=== PATIENT | female | born 1950 | race Caucasian/White ===

== ENCOUNTER 2016-08-02 06:09 | Day surgery (SDC) | payer OTHER, BC ==
--- NOTE | 2016-08-02 07:08 | HP ---
Admitting History and Physical - Admission History of Present Illness: patient is a 66 y/o female with a past medical history of hypertension, hyperlipidemia, and depression. Patient presents for ect, this will be her first ect treatment. She was referred by her psychiatrist, Dr Russell for ect because her current medication regimen has been ineffective. She denies any hospitalizations for depression. He denies any suicide attempts, she does reports suicidal thoughts however, she does have a plan. Patient denies any visual or auditory hallucination. Patient does report compliance with prescribed medications. History Source: Patient Limitations to Obtaining History: No Limitations - Past Medical History Cardiovascular: Yes: HTN, Hyperlipdemia - Smoking History Smoking history: Never smoked Have you smoked in the past 12 months: No - Alcohol/Substance Use Hx Alcohol Use: Yes (OCCASIONAL SOCIAL) History of Substance Use: reports: None - Social History Usual Living Arrangement: Yes: With Spouse ADL: Independent Home Medications - Allergies Allergies/Adverse Reactions: Allergies Allergy/AdvReac Type Severity Reaction Status Date / Time No Known Drug Allergies Allergy Verified 07/29/16 10:43 - Home Medications Home Medications: Ambulatory Orders Amlodipine Besylate 5 mg PO HS 07/29/16 Aripiprazole [Abilify] 5 mg PO HS 07/29/16 Atorvastatin Ca [Lipitor] 40 mg PO HS 07/29/16 Lamotrigine 200 mg PO BID 07/29/16 Sertraline HCl [Zoloft] 200 mg PO HS 07/29/16 Family Disease History - Family Disease History Family History: Unremarkable Review of Systems - Review of Systems Constitutional: reports: No Symptoms Eyes: reports: No Symptoms HENT: reports: No Symptoms Neck: reports: No Symptoms Cardiovascular: reports: No Symptoms Respiratory: reports: No Symptoms Gastrointestinal: reports: No Symptoms Genitourinary: reports: No Symptoms Musculoskeletal: reports: No Symptoms Integumentary: reports: No Symptoms Neurological: reports: No Symptoms Endocrine: reports: No Symptoms Hematology/Lymphatic: reports: No Symptoms Psychiatric: reports: No Symptoms Physical Examination Vital Signs: Vital Signs Temperature 98.2 F 08/02/16 06:49 Pulse Rate 60 08/02/16 06:49 Respiratory Rate 18 08/02/16 06:49 Blood Pressure 130/84 08/02/16 06:49 O2 Sat by Pulse Oximetry (%) 97 08/02/16 06:49 Constitutional: Yes: Well Nourished, No Distress, Calm Eyes: Yes: WNL, Conjunctiva Clear, EOM Intact HENT: Yes: WNL, Atraumatic, Normocephalic Neck: Yes: WNL, Supple, Trachea Midline Cardiovascular: Yes: WNL, Regular Rate and Rhythm, S1, S2 Respiratory: Yes: WNL, Regular, CTA Bilaterally Gastrointestinal: Yes: WNL, Normal Bowel Sounds, Soft ...Rectal Exam: Yes: Deferred Renal/: Yes: WNL Musculoskeletal: Yes: WNL Extremities: Yes: WNL Edema: No Peripheral Pulses WNL: Yes Peripheral Pulses: Left Radial: 4+, Right Radial: 4+, Left Doralis Pedis: 3+, Right Dorsalis Pedis: 3+, Left Femoral: 3+, Right Femoral: 3+ Integumentary: Yes: WNL Neurological: Yes: WNL, Alert, Oriented ...Motor Strength: WNL Psychiatric: Yes: WNL, Alert, Oriented Labs: reviewed 07/18/16 Imaging - Results EKG: Report Reviewed, Image Reviewed (nsr non specific st abnormality), Other Assessment/Plan pt is a 66 y/o female that presents for ect. labs and ekg reviewed, pt is low risk for procedure informed consent, risks and benefits to be obtained by Dr Mace.
[2016-08-02] MEDS ORDERED: KETAMINE HCL 500 MG/10 ML VIAL ONE (08:03)
[2016-08-02] MEDS ORDERED: LACTATED RINGERS SOLUTION 1,000 ML IV SCH (09:30)
== END 2016-08-02 09:42 | disposition home or self-care (01) ==
LOC: FECT 06:09
PROVIDERS: ATTEND Psychiatry & Neurology Psychiatry
PROC: GZB4ZZZ Other Electroconvulsive Therapy (ICD-10-PCS; principal; 2016-08-02 08:00)
DX: F33.2 Major depressive disorder, recurrent severe without psychotic features (principal)
CPT/HCPCS: 90870; 94760

== ENCOUNTER 2016-08-04 05:40 | Day surgery (SDC) | payer OTHER, BC ==
[2016-08-04] MEDS ORDERED: KETAMINE HCL 500 MG/10 ML VIAL ONE (07:20)
== END 2016-08-04 09:03 | disposition home or self-care (01) ==
LOC: FECT 05:40
PROVIDERS: ATTEND Psychiatry & Neurology Psychiatry
PROC: GZB4ZZZ Other Electroconvulsive Therapy (ICD-10-PCS; principal; 2016-08-04 07:45)
DX: F33.2 Major depressive disorder, recurrent severe without psychotic features (principal)
CPT/HCPCS: 90870; 94760

== ENCOUNTER 2016-08-06 05:43 | Day surgery (SDC) | payer OTHER, BC ==
[2016-07-29 11:45] VITALS: BMI 29.0
[2016-08-06] MEDS ORDERED: KETAMINE HCL 500 MG/10 ML VIAL ONE (06:48)
[2016-08-06 07:46] VITALS: TEMP 98.7
[2016-08-06 08:18] VITALS: BP 154/82; PULSE 58
== END 2016-08-06 08:57 | disposition home or self-care (01) ==
LOC: FECT 05:43
PROVIDERS: ATTEND Psychiatry & Neurology Psychiatry
PROC: GZB4ZZZ Other Electroconvulsive Therapy (ICD-10-PCS; principal; 2016-08-06 07:45)
DX: F33.2 Major depressive disorder, recurrent severe without psychotic features (principal)
CPT/HCPCS: 90870; 94760

== ENCOUNTER 2016-08-09 05:40 | Day surgery (SDC) | payer OTHER, BC ==
[2016-07-29 11:58] VITALS: BMI 29.0
[2016-08-09 07:27] VITALS: TEMP 97.6
[2016-08-09] MEDS ORDERED: oxyCODONE HCL 5 MG TABLET PO PRN (07:31)
[2016-08-09] MEDS ORDERED: ONDANSETRON 4 MG/2 ML VIAL IVPUSH PRN (07:31)
[2016-08-09] MEDS ORDERED: LACTATED RINGERS SOLUTION 1,000 ML IV SCH (07:45)
[2016-08-09] MEDS ORDERED: KETAMINE HCL 500 MG/10 ML VIAL ONE (08:56)
[2016-08-09 10:01] VITALS: PULSE 72
[2016-08-09 10:43] VITALS: BP 148/68
== END 2016-08-09 10:32 | disposition home or self-care (01) ==
LOC: FECT 05:40
PROVIDERS: ATTEND Psychiatry & Neurology Psychiatry
PROC: GZB4ZZZ Other Electroconvulsive Therapy (ICD-10-PCS; principal; 2016-08-09 07:45)
DX: F33.2 Major depressive disorder, recurrent severe without psychotic features (principal)
CPT/HCPCS: 90870; 94760

== ENCOUNTER 2016-08-11 05:34 | Day surgery (SDC) | payer OTHER, BC ==
[2016-07-29 12:16] VITALS: BMI 29.0
[2016-08-11 06:17] VITALS: TEMP 98.2
[2016-08-11] MEDS ORDERED: KETAMINE HCL 500 MG/10 ML VIAL ONE (06:55)
[2016-08-11 08:47] VITALS: BP 167/84; PULSE 63
[2016-08-11] MEDS ORDERED: PROMETHAZINE HCL 25 MG/1 ML VIAL IVPUSH PRN (09:04)
[2016-08-11] MEDS ORDERED: ONDANSETRON 4 MG/2 ML VIAL IVPUSH PRN (09:04)
[2016-08-11] MEDS ORDERED: LACTATED RINGERS SOLUTION 1,000 ML IV SCH (09:15)
== END 2016-08-11 08:30 | disposition home or self-care (01) ==
LOC: FECT 05:34
PROVIDERS: ATTEND Psychiatry & Neurology Psychiatry
PROC: GZB4ZZZ Other Electroconvulsive Therapy (ICD-10-PCS; principal; 2016-08-11 07:30)
DX: F33.2 Major depressive disorder, recurrent severe without psychotic features (principal)
CPT/HCPCS: 90870; 94760

== ENCOUNTER 2016-08-13 05:41 | Day surgery (SDC) | payer OTHER, BC ==
[2016-07-29 13:09] VITALS: BMI 21.3
[2016-08-13 06:37] VITALS: TEMP 98.2
[2016-08-13] MEDS ORDERED: KETAMINE HCL 500 MG/10 ML VIAL ONE (07:35)
[2016-08-13 09:25] VITALS: BP 160/62; PULSE 64
[2016-08-13] MEDS ORDERED: LACTATED RINGERS SOLUTION 1,000 ML IV SCH (12:45)
== END 2016-08-13 09:27 | disposition home or self-care (01) ==
LOC: FECT 05:41
PROVIDERS: ATTEND Psychiatry & Neurology Psychiatry
PROC: GZB4ZZZ Other Electroconvulsive Therapy (ICD-10-PCS; principal; 2016-08-13 07:30)
DX: F33.2 Major depressive disorder, recurrent severe without psychotic features (principal)
CPT/HCPCS: 90870; 94760

== ENCOUNTER 2016-08-16 05:37 | Day surgery (SDC) | payer OTHER, BC ==
[2016-07-30 09:41] VITALS: BMI 29.0
[2016-08-16] MEDS ORDERED: KETAMINE HCL 500 MG/10 ML VIAL ONE (07:01)
[2016-08-16 08:21] VITALS: TEMP 98
[2016-08-16 08:35] VITALS: BP 149/79; PULSE 74
== END 2016-08-16 08:40 | disposition home or self-care (01) ==
LOC: FECT 05:37
PROVIDERS: ATTEND Psychiatry & Neurology Psychiatry
PROC: GZB4ZZZ Other Electroconvulsive Therapy (ICD-10-PCS; principal; 2016-08-16 07:45)
DX: F33.2 Major depressive disorder, recurrent severe without psychotic features (principal)
CPT/HCPCS: 90870; 94760

== ENCOUNTER 2016-08-18 05:42 | Day surgery (SDC) | payer OTHER, BC ==
[2016-08-12 11:51] VITALS: BMI 29.0
[2016-08-18] MEDS ORDERED: KETAMINE HCL 500 MG/10 ML VIAL ONE (06:53)
[2016-08-18] MEDS ORDERED: ONDANSETRON 4 MG/2 ML VIAL IVPUSH PRN (07:36)
[2016-08-18 07:57] VITALS: TEMP 98
[2016-08-18 08:11] VITALS: BP 136/75; PULSE 66
== END 2016-08-18 08:15 | disposition home or self-care (01) ==
LOC: FECT 05:42
PROVIDERS: ATTEND Psychiatry & Neurology Psychiatry
PROC: GZB4ZZZ Other Electroconvulsive Therapy (ICD-10-PCS; principal; 2016-08-18 07:30)
DX: F32.9 Major depressive disorder, single episode, unspecified (principal)
CPT/HCPCS: 90870; 94760

== ENCOUNTER 2016-08-20 05:36 | Day surgery (SDC) | payer OTHER, BC ==
[2016-08-12 12:04] VITALS: BMI 29.0
[2016-08-20 06:07] VITALS: TEMP 98.4
[2016-08-20] MEDS ORDERED: KETAMINE HCL 500 MG/10 ML VIAL ONE (06:52)
[2016-08-20 09:41] VITALS: BP 147/88; PULSE 76
== END 2016-08-20 08:20 | disposition home or self-care (01) ==
LOC: FECT 05:36
PROVIDERS: ATTEND Psychiatry & Neurology Psychiatry
PROC: GZB4ZZZ Other Electroconvulsive Therapy (ICD-10-PCS; principal; 2016-08-20 07:00)
DX: F33.2 Major depressive disorder, recurrent severe without psychotic features (principal)
CPT/HCPCS: 90870; 94760

== ENCOUNTER 2016-08-23 05:29 | Day surgery (SDC) | payer OTHER, BC ==
[2016-08-16 15:59] VITALS: BMI 29.0
[2016-08-23 06:07] VITALS: TEMP 98.1
[2016-08-23] MEDS ORDERED: KETAMINE HCL 500 MG/10 ML VIAL ONE (06:50)
[2016-08-23 08:43] VITALS: BP 150/77; PULSE 77
== END 2016-08-23 08:30 | disposition home or self-care (01) ==
LOC: FECT 05:29
PROVIDERS: ATTEND Psychiatry & Neurology Psychiatry
PROC: GZB4ZZZ Other Electroconvulsive Therapy (ICD-10-PCS; principal; 2016-08-23 07:00)
DX: F33.2 Major depressive disorder, recurrent severe without psychotic features (principal)
CPT/HCPCS: 90870; 94760

== ENCOUNTER 2016-08-25 05:36 | Day surgery (SDC) | payer OTHER, BC ==
[2016-08-20 10:59] VITALS: BMI 29.0
[2016-08-25] MEDS ORDERED: KETAMINE HCL 500 MG/10 ML VIAL ONE (06:56)
[2016-08-25] MEDS ORDERED: LACTATED RINGERS SOLUTION 1,000 ML IV SCH (07:15)
[2016-08-25 08:54] VITALS: TEMP 98.1
[2016-08-25 08:55] VITALS: BP 168/72; PULSE 76
== END 2016-08-25 08:40 | disposition home or self-care (01) ==
LOC: FECT 05:36
PROVIDERS: ATTEND Psychiatry & Neurology Psychiatry
PROC: GZB4ZZZ Other Electroconvulsive Therapy (ICD-10-PCS; principal; 2016-08-25 07:00)
DX: F33.2 Major depressive disorder, recurrent severe without psychotic features (principal)
CPT/HCPCS: 90870; 94760

== ENCOUNTER 2016-08-30 05:38 | Day surgery (SDC) | payer OTHER, BC ==
[2016-08-25 10:06] VITALS: BMI 29.0
[2016-08-30 06:04] VITALS: TEMP 97.8
[2016-08-30] MEDS ORDERED: KETAMINE HCL 500 MG/10 ML VIAL ONE (06:56)
[2016-08-30 08:20] VITALS: BP 153/81; PULSE 69
== END 2016-08-30 08:30 | disposition home or self-care (01) ==
LOC: FECT 05:38
PROVIDERS: ATTEND Psychiatry & Neurology Psychiatry
PROC: GZB4ZZZ Other Electroconvulsive Therapy (ICD-10-PCS; principal; 2016-08-30 07:00)
DX: F33.2 Major depressive disorder, recurrent severe without psychotic features (principal)
CPT/HCPCS: 90870; 94760

== ENCOUNTER 2016-09-01 05:38 | Day surgery (SDC) | payer OTHER, BC ==
[2016-08-26 12:10] VITALS: BMI 29.0
[2016-09-01] MEDS ORDERED: KETAMINE HCL 500 MG/10 ML VIAL ONE (06:52)
[2016-09-01 07:58] VITALS: TEMP 98.1
--- NOTE | 2016-09-01 08:03 | HP ---
Admitting History and Physical - Admission History of Present Illness: patient is a 66 y/o female with a past medical history of hypertension, hyperlipidemia, and depression. Patient presents for ect, her last ect was 08/30. She reports feeling well, patient denies any recent hospitalizations or illnesses. She reports minimal improvement in her depression since starting ect. She denies any changes in medications and reports compliance with prescribed medications. Patient denies any suicidal or homicidal ideation, auditory or visual hallucinations. History Source: Patient Limitations to Obtaining History: No Limitations - Past Medical History Cardiovascular: Yes: HTN, Hyperlipdemia - Smoking History Smoking history: Never smoked Have you smoked in the past 12 months: No - Alcohol/Substance Use Hx Alcohol Use: Yes (OCCASIONAL SOCIAL) History of Substance Use: reports: None - Social History Usual Living Arrangement: Yes: With Spouse ADL: Independent History of Recent Travel: No Home Medications - Allergies Allergies/Adverse Reactions: Allergies Allergy/AdvReac Type Severity Reaction Status Date / Time No Known Drug Allergies Allergy Verified 08/20/16 06:12 - Home Medications Home Medications: Ambulatory Orders Amlodipine Besylate 5 mg PO HS 07/29/16 Aripiprazole [Abilify] 5 mg PO HS 07/29/16 Atorvastatin Ca [Lipitor] 40 mg PO HS 07/29/16 Sertraline HCl [Zoloft] 200 mg PO HS 07/29/16 Family Disease History - Family Disease History Family History: Unremarkable Review of Systems - Review of Systems Constitutional: reports: No Symptoms Eyes: reports: No Symptoms HENT: reports: No Symptoms Neck: reports: No Symptoms Cardiovascular: reports: No Symptoms Respiratory: reports: No Symptoms Gastrointestinal: reports: No Symptoms Genitourinary: reports: No Symptoms Musculoskeletal: reports: No Symptoms Integumentary: reports: No Symptoms Neurological: reports: No Symptoms Endocrine: reports: No Symptoms Hematology/Lymphatic: reports: No Symptoms Psychiatric: reports: No Symptoms Physical Examination Vital Signs: Vital Signs Temperature 97.6 F 09/01/16 05:55 Pulse Rate 79 09/01/16 07:19 Respiratory Rate 20 09/01/16 07:19 Blood Pressure 180/82 09/01/16 07:19 O2 Sat by Pulse Oximetry (%) 99 09/01/16 07:19 Constitutional: Yes: Well Nourished, No Distress, Calm Eyes: Yes: WNL, Conjunctiva Clear, EOM Intact HENT: Yes: WNL, Atraumatic, Normocephalic Neck: Yes: WNL, Supple, Trachea Midline Cardiovascular: Yes: WNL, Regular Rate and Rhythm, S1, S2 Respiratory: Yes: WNL, Regular, CTA Bilaterally Gastrointestinal: Yes: WNL, Normal Bowel Sounds, Soft ...Rectal Exam: Yes: Deferred Renal/: Yes: WNL Breast(s): Yes: WNL Musculoskeletal: Yes: WNL Extremities: Yes: WNL Edema: No Peripheral Pulses WNL: Yes Peripheral Pulses: Left Radial: 4+, Right Radial: 4+, Left Doralis Pedis: 3+, Right Dorsalis Pedis: 3+, Left Femoral: 3+, Right Femoral: 3+ Integumentary: Yes: WNL Neurological: Yes: WNL, Alert, Oriented ...Motor Strength: WNL Psychiatric: Yes: WNL, Alert, Oriented Labs: reviewed 07/24 Imaging - Results EKG: Image Reviewed, Other (nsr no ischemic changes) Assessment/Plan pt is a 66 y/o female that presents for ect, she has received ect in the past and denies any adverse reaction to anesthesia labs and ekg reviewed pt is low risk for procedure informed consent, risks/benefits to be obtained by Dr Mace
[2016-09-01 08:23] VITALS: BP 159/85; PULSE 74
== END 2016-09-01 08:43 | disposition home or self-care (01) ==
LOC: FECT 05:38
PROVIDERS: ATTEND Psychiatry & Neurology Psychiatry
PROC: GZB4ZZZ Other Electroconvulsive Therapy (ICD-10-PCS; principal; 2016-09-01 07:15)
DX: F33.2 Major depressive disorder, recurrent severe without psychotic features (principal)
CPT/HCPCS: 90870; 94760

== ENCOUNTER 2016-09-03 05:39 | Day surgery (SDC) | payer OTHER, BC ==
[2016-09-03] MEDS ORDERED: KETAMINE HCL 500 MG/10 ML VIAL ONE (06:58)
[2016-09-03 07:49] VITALS: TEMP 98.1
[2016-09-03 08:20] VITALS: BP 152/76; PULSE 76
== END 2016-09-03 08:15 | disposition home or self-care (01) ==
LOC: FECT 05:39
PROVIDERS: ATTEND Psychiatry & Neurology Psychiatry
PROC: GZB4ZZZ Other Electroconvulsive Therapy (ICD-10-PCS; principal; 2016-09-03 07:30)
DX: F33.2 Major depressive disorder, recurrent severe without psychotic features (principal)
CPT/HCPCS: 90870; 94760

== ENCOUNTER 2016-09-06 05:39 | Day surgery (SDC) | payer OTHER, BC ==
[2016-09-06 06:01] VITALS: TEMP 98.1
[2016-09-06] MEDS ORDERED: KETAMINE HCL 500 MG/10 ML VIAL ONE (06:55)
[2016-09-06 08:23] VITALS: BP 156/89; PULSE 83
[2016-09-06] MEDS ORDERED: ONDANSETRON 4 MG/2 ML VIAL IVPUSH PRN (11:21)
[2016-09-06] MEDS ORDERED: LACTATED RINGERS SOLUTION 1,000 ML IV SCH (11:30)
== END 2016-09-06 08:15 | disposition home or self-care (01) ==
LOC: FECT 05:39
PROVIDERS: ATTEND Psychiatry & Neurology Psychiatry
PROC: GZB4ZZZ Other Electroconvulsive Therapy (ICD-10-PCS; principal; 2016-09-06 07:45)
DX: F33.2 Major depressive disorder, recurrent severe without psychotic features (principal)
CPT/HCPCS: 90870; 94760

== ENCOUNTER 2016-09-08 05:39 | Day surgery (SDC) | payer OTHER, BC ==
[2016-09-08] MEDS ORDERED: KETAMINE HCL 500 MG/10 ML VIAL ONE (06:57)
[2016-09-08] MEDS ORDERED: ONDANSETRON 4 MG/2 ML VIAL IVPUSH PRN (08:58)
[2016-09-08] MEDS ORDERED: LACTATED RINGERS SOLUTION 1,000 ML IV SCH (09:00)
[2016-09-08 12:35] VITALS: PULSE 76
[2016-09-08 13:15] VITALS: BP 154/69; TEMP 98.9
[2016-09-10] MEDS ORDERED: KETAMINE HCL 500 MG/10 ML VIAL ONE (06:56)
== END 2016-09-08 08:25 | disposition home or self-care (01) ==
LOC: FECT 05:39
PROVIDERS: ATTEND Psychiatry & Neurology Psychiatry
PROC: GZB4ZZZ Other Electroconvulsive Therapy (ICD-10-PCS; principal; 2016-09-08 08:15)
DX: F33.2 Major depressive disorder, recurrent severe without psychotic features (principal)
CPT/HCPCS: 90870; 94760

== ENCOUNTER 2016-09-10 05:37 | Day surgery (SDC) | payer OTHER, BC ==
[2016-09-10 08:04] VITALS: TEMP 98.3
[2016-09-10 08:35] VITALS: BP 150/84; PULSE 82
== END 2016-09-10 08:36 | disposition home or self-care (01) ==
LOC: FECT 05:37
PROVIDERS: ATTEND Psychiatry & Neurology Psychiatry
PROC: GZB4ZZZ Other Electroconvulsive Therapy (ICD-10-PCS; principal; 2016-09-10 07:30)
DX: F33.2 Major depressive disorder, recurrent severe without psychotic features (principal)
CPT/HCPCS: 90870; 94760

== ENCOUNTER 2016-09-13 05:42 | Day surgery (SDC) | payer OTHER, BC ==
[2016-09-08 09:48] VITALS: BMI 29.0
[2016-09-13 06:11] VITALS: TEMP 98.2
[2016-09-13] MEDS ORDERED: KETAMINE HCL 500 MG/10 ML VIAL ONE (06:55)
[2016-09-13 09:08] VITALS: BP 166/88; PULSE 81
== END 2016-09-13 08:15 | disposition home or self-care (01) ==
LOC: FECT 05:42
PROVIDERS: ATTEND Psychiatry & Neurology Psychiatry
PROC: GZB4ZZZ Other Electroconvulsive Therapy (ICD-10-PCS; principal; 2016-09-13 08:00)
DX: F33.2 Major depressive disorder, recurrent severe without psychotic features (principal)
CPT/HCPCS: 90870; 94760

== ENCOUNTER 2016-09-15 05:41 | Day surgery (SDC) | payer OTHER, BC ==
[2016-09-14 11:44] VITALS: BMI 29.0
[2016-09-15 06:20] VITALS: TEMP 98.4
[2016-09-15] MEDS ORDERED: KETAMINE HCL 500 MG/10 ML VIAL ONE (07:02)
[2016-09-15] MEDS ORDERED: ONDANSETRON 4 MG/2 ML VIAL IVPUSH PRN (07:43)
[2016-09-15] MEDS ORDERED: ACETAMINOPHEN 325 MG TABLET (FP) PO PRN (07:43)
[2016-09-15] MEDS ORDERED: LACTATED RINGERS SOLUTION 1,000 ML IV SCH (07:45)
[2016-09-15 08:33] VITALS: BP 148/82; PULSE 84
== END 2016-09-15 08:40 | disposition home or self-care (01) ==
LOC: FECT 05:41
PROVIDERS: ATTEND Psychiatry & Neurology Psychiatry
PROC: GZB4ZZZ Other Electroconvulsive Therapy (ICD-10-PCS; principal; 2016-09-15 08:45)
DX: F33.2 Major depressive disorder, recurrent severe without psychotic features (principal)
CPT/HCPCS: 90870; 94760

== ENCOUNTER 2016-09-17 05:42 | Day surgery (SDC) | payer OTHER, BC ==
[2016-09-14 11:53] VITALS: BMI 29.0
[2016-09-17] MEDS ORDERED: KETAMINE HCL 500 MG/10 ML VIAL ONE (06:53)
[2016-09-17 08:19] VITALS: TEMP 98.2
[2016-09-17 08:21] VITALS: BP 152/88; PULSE 78
== END 2016-09-17 08:25 | disposition home or self-care (01) ==
LOC: FECT 05:42
PROVIDERS: ATTEND Psychiatry & Neurology Psychiatry
PROC: GZB4ZZZ Other Electroconvulsive Therapy (ICD-10-PCS; principal; 2016-09-17 08:15)
DX: F33.2 Major depressive disorder, recurrent severe without psychotic features (principal)
CPT/HCPCS: 90870; 94760

== ENCOUNTER 2016-09-21 05:37 | Day surgery (SDC) | payer OTHER, BC ==
[2016-09-20 12:05] VITALS: BMI 29.0
[2016-09-21] MEDS ORDERED: KETAMINE HCL 500 MG/10 ML VIAL ONE (07:12)
[2016-09-21] MEDS ORDERED: LACTATED RINGERS SOLUTION 1,000 ML IV SCH (07:15)
[2016-09-21 08:15] VITALS: TEMP 98.4
[2016-09-21 08:49] VITALS: BP 132/100; PULSE 80
== END 2016-09-21 08:50 | disposition home or self-care (01) ==
LOC: FECT 05:37
PROVIDERS: ATTEND Psychiatry & Neurology Psychiatry
PROC: GZB4ZZZ Other Electroconvulsive Therapy (ICD-10-PCS; principal; 2016-09-21 07:30)
DX: F33.2 Major depressive disorder, recurrent severe without psychotic features (principal)
CPT/HCPCS: 90870; 94760

== ENCOUNTER 2016-09-24 05:38 | Day surgery (SDC) | payer OTHER, BC ==
[2016-09-22 13:48] VITALS: BMI 29.0
[2016-09-24] MEDS ORDERED: KETAMINE HCL 500 MG/10 ML VIAL ONE (06:50)
[2016-09-24] MEDS ORDERED: LACTATED RINGERS SOLUTION 1,000 ML IV SCH (07:30)
[2016-09-24 07:31] VITALS: TEMP 98.2
[2016-09-24 08:54] VITALS: BP 140/82; PULSE 70
== END 2016-09-24 08:15 | disposition home or self-care (01) ==
LOC: FECT 05:38
PROVIDERS: ATTEND Psychiatry & Neurology Psychiatry
PROC: GZB4ZZZ Other Electroconvulsive Therapy (ICD-10-PCS; principal; 2016-09-24 07:00)
DX: F33.2 Major depressive disorder, recurrent severe without psychotic features (principal)
CPT/HCPCS: 90870; 94760